=== PATIENT | male | born 1975 | race Caucasian/White ===

== ENCOUNTER 2016-08-28 15:02 | Emergency (ER) | payer OTHER ==
[2016-08-28 15:10] VITALS: RESP 20; TEMP 96.4
[2016-08-28] MEDS ORDERED: KETOROLAC 60 MG/2 ML VIAL IM ONE (15:10)
[2016-08-28] MEDS ORDERED: HYDROcodone-APAP 5 MG -325 MG TABLET PO ONE (15:10)
--- NOTE | 2016-08-28 16:21 | DI ---
PA /LATERAL CHEST X-RAY, 08/28/2016 3:11 PM : Clinical History: Right posterior chest wall pain. Previous Exam: 10/06/2006. There are fractures of the right eighth and ninth ribs posteriorly and these either are acute or suba cute. Heart size is normal. There is no pneumothorax, pleural effusion, or pulmonary contusion. Media stinal structures are normal. There are no pulmonary nodules. Readin. Acute or subacute fractures of the right eighth and ninth ribs posteriorly without evidence of a pneumothorax or pulmonary contusion. No pleural effusion is noted. 2. The remainder of the examination is normal.
--- NOTE | 2016-08-28 17:33 | PDOC ---
General Adult HPI - General Chief Complaint: Neck / Back Complaint Stated Complaint: WRESTLING WITH BACK PAIN, R POST UPPER RIB PAIN Date Seen by Provider: 08/28/16 Time Seen by Provider: 15:05 Source: POSITIVE: Patient Exam Limitations: POSITIVE: No limitations Nurse's Notes Reviewed & Considered: Yes - History of Present Illness Initial Comment: The patient is a 40-year-old male who presents to the emergency department with right-sided chest wall pain. He states that he was horsing around with his nephew a couple of days ago. His nephew had a minute headlock and went to twist him when he felt a pop on the right posterior chest wall. He had some pain initially however it was manageable. Today however his pain has intensified. He has increased pain with taking a deep breath or with any movement. He did take some ibuprofen without any relief. He denies any shortness of breath although he states it is hard to take a deep breath secondary to pain. He has not had any fever, abdominal pain or any other associated complaints. He is unsure about previous rib fractures. Have you received a tetanus shot in the past 10 years?: Yes - Patient Home Medications Home Medications: Home Medications Pantoprazole Sodium 1 tab-cap PO DAILY #30 tab-cap 06/08/16 Cyclobenzaprine HCl [Flexeril] 10 mg PO TID PRN #20 tab 08/28/16 HYDROcodone/APAP 5/325 Tab [[place] 5/325 Tab] 1 each PO Q6H PRN #20 tablet - Patient Allergies Allergies/Adverse Reactions: Allergies Allergy/AdvReac Type Severity Reaction Status Date / Time clindamycin Allergy bothered Verified 08/28/16 15:04 gi tract Past Medical History - heen HEENT History: Denies History Cardiovascular History: Denies History Respiratory History: Denies History Gastrointestinal History: GERD Genitourinary History: Denies History Endocrine History: Denies History Musculoskeletal History: Denies History Neurological History: Denies History Blood Disorders: Denies History Psychiatric History: Denies History History of Sexually Transmitted Diseases: No Male Reproductive History: Denies History Cancer History: Denies History In Past Year Been Physically Harmed or Verbally Threatened: No History of MDRO: No History of Other Communicable Diseases: No Tobacco Use: Smoker Current Status Unknown Alcohol Use: Occasionally Substance Use Type: None Previous Surgical History: Yes Type / Date of Surgery: RIGHT SHOULDER SCOPE Anesthesia Reactions: No Malignant Hyperthermia: No Significant Family History: No pertinent family hx Past Medical History Reviewed: Reviewed - No Changes ROS - Limitations ROS Limitations: No Limitations (Review of systems otherwise noncontributory) General Adult Exam - General Appearance General Appearance: POSITIVE: Alert, Cooperative, No Acute Distress - HEENT HEENT: POSITIVE: Head Inspection Nml - Neck Neck: POSITIVE: Normal Inspection - Respiratory Respiratory: POSITIVE: No Respiratory Distress, Breath Sounds Normal, Other (He does have an area of tenderness to the right posterior lateral chest wall about mid chest. No crepitus or deformity noted, some mild bruising in this region) - Cardiovascular Cardiovascular: POSITIVE: Regular Rate & Rhythm, No Murmur - Abdomen Abdomen: Soft: (All Quadrants), Denies Tenderness: (All Quadrants), No Distention: (All Quadrants) - Back Back: POSITIVE: Normal Inspection. NEGATIVE: Thoracic Tenderness, Lumbosacral Tenderness - Skin Skin: POSITIVE: Normal Color, No Rash General Adult Progress - Results Reviewed by me Xrays/CTs/US Reviewed by me: Yes Discussed with Radiologist: Yes Radiology Findings: Acute or subacute rib fractures of the right posterior eighth and ninth ribs per radiologist, no evidence of pneumothorax or other acute injury - Patient's Progress MDM / ED Course: The patient did appear to be quite uncomfortable on arrival. He did receive Toradol 60 mg and Norflex 60 mg IM for pain. In addition he received 2 [place] by mouth. His pain was improving significantly. His chest x-ray does reveal what appears to be acute or subacute rib fractures on the right side with no evidence of pneumothorax. He is advised to continue ibuprofen 600 mg every 6 hours as needed for pain. In addition he was given [place] 5/325 which she can take one every 4-6 hours as needed for pain. He will return to the emergency room if increased pain or shortness of breath, any worsening or change in symptoms. He is advised follow-up with primary care in 1 week. - Consult Counseled: POSITIVE: Patient, RE: Radiology Results, RE: DX, RE: Need for F/U Patient Care Time - Estimated PCT Patient Care Time (In Minutes): 20 Vital Signs - Recent Vital Signs Vital Signs: Vital Signs (Last 8 hours) Temp Pulse Resp BP Pulse Ox 08/28/16 15:03 96.4 F L 62 20 129/86 94 - VS Reviewed Vital Signs Reviewed: Yes Discharge Clinical Impression: Rib fracture Discharge Disposition: Discharged to Home Condition: Stable Prescriptions / Orders: Cyclobenzaprine HCl [Flexeril] 10 mg PO TID PRN #20 tab PRN Reason: Spasms HYDROcodone/APAP 5/325 Tab [[place] 5/325 Tab] 1 each PO Q6H PRN #20 tablet PRN Reason: Pain Patient Instructions Given at Discharge: Rib Fracture (ED) Additional Instructions: It does appear that there is a rib fracture on that side which is likely new however could also be an old fracture just exacerbated or reinjured from your recent injury. There was no evidence of punctured lung her internal injury. Continue ibuprofen 600 mg every 6 hours as needed for pain. You have also been prescribed Flexeril 10 mg every 8 hours as needed for spasm and [place] 5/325 which he can take one every 4-6 hours as needed for pain. Return to the emergency room if increased pain, shortness of breath, fever or productive cough , any worsening or change in symptoms. Follow-up with primary care in 1 week. Follow Up With: LISA HARRIS [Primary Care Provider] -
== END 2016-08-28 16:20 | disposition home or self-care (01) ==
LOC: ER 15:02
DX: S22.41XA Multiple fractures of ribs, right side, initial encounter for closed fracture (principal); Y93.83 Activity, rough housing and horseplay
CPT/HCPCS: 71020; 96372; 99283 ×2; J1885; J2360

== ENCOUNTER 2016-09-01 13:21 | Emergency (ER) | payer OTHER ==
--- NOTE | 2016-09-01 13:38 | PDOC ---
General Adult HPI - General Chief Complaint: General Medical Stated Complaint: PAIN MED NOT WORKING/ RIB FXS X2 Date Seen by Provider: 09/01/16 Time Seen by Provider: 13:33 Source: POSITIVE: Patient Exam Limitations: POSITIVE: No limitations Nurse's Notes Reviewed & Considered: Yes - History of Present Illness Initial Comment: Patient is a 40 y/o male who presents to the ER for evaluation of pain. He was diagnosed with rib fractures. Patient has been using flexeril and [place]. Pain control is not enough. Every now and then he will get a sharp, severe pain. Right sided ribs. Minimal improvement with medications. No radiation. Intermittent. No cough. No fevers. No chills. Have you received a tetanus shot in the past 10 years?: Yes - Patient Home Medications Home Medications: Home Medications Pantoprazole Sodium 1 tab-cap PO DAILY #30 tab-cap 06/08/16 Cyclobenzaprine HCl [Flexeril] 10 mg PO TID PRN #20 tab 08/28/16 HYDROcodone/APAP 5/325 Tab [[place] 5/325 Tab] 1 each PO Q6H PRN #20 tablet - Patient Allergies Allergies/Adverse Reactions: Allergies Allergy/AdvReac Type Severity Reaction Status Date / Time clindamycin Allergy bothered Verified 09/01/16 13:25 gi tract Past Medical History - heen HEENT History: Denies History Cardiovascular History: Denies History Respiratory History: Denies History Gastrointestinal History: GERD Genitourinary History: Denies History Endocrine History: Denies History Musculoskeletal History: Denies History Neurological History: Denies History Blood Disorders: Denies History Psychiatric History: Denies History History of Sexually Transmitted Diseases: No Cancer History: Denies History History of MDRO: No History of Other Communicable Diseases: No Do you dip or chew tobacco: Yes Alcohol Use: Occasionally Substance Use Type: None Previous Surgical History: Yes Type / Date of Surgery: RIGHT SHOULDER SCOPE Anesthesia Reactions: No Malignant Hyperthermia: No Significant Family History: No pertinent family hx Past Medical History Reviewed: Reviewed - Changes Made ROS - Limitations ROS Limitations: No Limitations Constitution: DENIES: Chills, Fever Cardiovascular: REPORTS: Denies Cardiac Symptoms Respiratory: REPORTS: Denies Resp Symptoms Neurological: REPORTS: Denies Neuro Symptoms Gastrointestinal: REPORTS: Denies GI Symptoms Endocrine: REPORTS: Denies Symptoms Musculoskeletal: REPORTS: Other (Right posterior rib pain) Genitourinary: REPORTS: Denies Symptoms Eyes: REPORTS: Denies Symptoms Skin: REPORTS: Denies Skin Symptoms General Adult Exam - General Appearance General Appearance: POSITIVE: Alert, Cooperative, No Acute Distress - HEENT HEENT: POSITIVE: Head Inspection Nml - Pupils Pupil Size: 4 mm: Bilateral - Neck Neck: POSITIVE: Normal Inspection - Respiratory Respiratory: POSITIVE: No Respiratory Distress, Breath Sounds Normal, Other ( TTP of right posterior chest wall. No crepitance.) - Cardiovascular Cardiovascular: POSITIVE: Regular Rate & Rhythm, No Murmur, No Gallop - Abdomen Abdomen: Soft: (All Quadrants), Denies Tenderness: (All Quadrants), No Splenomegaly: (All Quadrants), No Hepatomegaly: (All Quadrants) - Back Back: POSITIVE: Normal Inspection - Skin Skin: POSITIVE: Warm, Dry General Adult Progress - Patient's Progress MDM / ED Course: Valdez is a 40 y/o male who presents with pain with recent rib fractures. Xray was reviewed from prior visit. Notable for fracture without evidence of pneumothorax or other injury. Patients examination is notable for TTP of the ribs at the site of the fracture. Low suspicion for worsening of underlying injury. Did discuss pain control options. Will change norco to percocet and have patient use lidoderm patches. Instructed to follow up with primary care provider. Patient Care Time - Estimated PCT Patient Care Time (In Minutes): 10 Vital Signs - VS Reviewed Vital Signs Reviewed: Yes Discharge Clinical Impression: Rib fracture Qualifiers: Encounter type: subsequent encounter Rib fracture type: multiple ribs Fracture type: closed Laterality: right Fracture healing: with routine healing Qualifier Code: (S22.41XD) Multiple fractures of ribs, right side, subsequent encounter for fracture with routine healing Discharge Disposition: Discharged to Home Condition: Fair Patient Instructions Given at Discharge: Rib Fracture (ED) Additional Instructions: Please use lidoderm and percocet for pain. Follow up with your primary care provider. Return to the ER for any changes in symptoms.
[2016-09-01 13:41] VITALS: RESP 19; TEMP 96.8
== END 2016-09-01 13:50 | disposition home or self-care (01) ==
LOC: ER 13:21
DX: S22.41XD Multiple fractures of ribs, right side, subsequent encounter for fracture with routine healing (principal)
CPT/HCPCS: 99282